=== PATIENT | female | born 1965 | race Caucasian/White ===

== ENCOUNTER 2019-05-21 06:57 | Inpatient (IN) | payer OTHER ==
[~2019-05-21 06:57] MED LIST: Acetaminophen 1,000 MG in Premix Bag 1 BAG IV SCH; Famotidine 20 MG/2 ML SDV IVPUSH SCH; Ropivacaine 49.25 ML, Ketorolac 30 MG, EPINEPHrine 0.5 MG, cloNIDine 80 MCG in Sodium C... INJECT SCH; Scopolamine 1.5 MG Transdermal Patch TRDERM SCH
[2019-05-21] MEDS: Lactated Ringers 1,000 ML IV SCH ×2 (07:22→16:02)
[2019-05-21] MEDS ORDERED: Lidocaine 2% 5 ML SDV ONE (07:25)
[2019-05-21] MEDS ORDERED: Glycopyrrolate 0.2 MG/ML SDV ONE (07:25)
[2019-05-21] MEDS ORDERED: Ketorolac 30 MG/ML SDV ONE (07:25)
[2019-05-21] MEDS ORDERED: fentaNYL 100 MCG/2 ML SDV ONE (07:25)
[2019-05-21] MEDS ORDERED: Ondansetron 4 MG/2 ML SDV ONE (07:25)
[2019-05-21] MEDS ORDERED: Midazolam 1 MG/ML 2 ML SDV ONE (07:25)
[2019-05-21] MEDS ORDERED: Propofol 200 MG/20 ML SDV ONE (07:27)
[2019-05-21] MEDS ORDERED: Sodium Chloride 0.9% 20 ML ONE (07:31)
[2019-05-21] MEDS ORDERED: ceFAZolin 1 GM Vial ONE (07:31)
[2019-05-21] MEDS ORDERED: Bupivacaine 0.5% 10 ML SDV ONE ×2 (07:35→08:09)
--- NOTE | 2019-05-21 07:46 | PCM.PREANE ---
Preanesthetic Assessment - Anesthesia/Transfusion/Family Hx Anesthesia History: Prior Anesthesia Without Reaction Family History of Anesthesia Reaction: No Transfusion History: No Prior Transfusion(s) - Review of Systems General: No Symptoms Pulmonary: No Symptoms Cardiovascular: No Symptoms Gastrointestinal: Other (sx of gerdd) Neurological: No Symptoms Other: Reports: None - Physical Assessment NPO Status Date: 05/20/19 O2 Sat by Pulse Oximetry: 97 Respiratory Rate: 16 Vital Signs: Last Vital Signs Temp Pulse 79 05/21/19 07:16 Resp 16 05/21/19 07:16 BP 154/86 H 05/21/19 07:16 Pulse Ox 97 05/21/19 07:16 Height: 5 ft 10 in Weight: 103.419 kg ASA Class: 2 Mental Status: Alert & Oriented x3 Airway Class: Mallampati = 2 Dentition: Reports: Normal Dentition ROM/Head Extension: Full Lungs: Clear to Auscultation, Normal Respiratory Effort Cardiovascular: Regular Rate, Regular Rhythm - Allergies Allergies/Adverse Reactions: Allergies Allergy/AdvReac Type Severity Reaction Status Date / Time No Known Allergies Allergy Verified 05/21/19 07:20 - Blood Blood Available: No - Anesthesia Plan Pre-Op Medication Ordered: None - Acknowledgements Anesthesia Type Planned: Spinal Pt an Appropriate Candidate for the Planned Anesthesia: Yes Alternatives and Risks of Anesthesia Discussed w Pt/Guardian: Yes Pt/Guardian Understands and Agrees with Anesthesia Plan: Yes Additional Comments: anes prob list: hx anemia- hb=14, hx DVT- on no chronic anticoags, chronic LBP- 0n gabipentin, GERD PLAN: spinal with sedation PreAnesthesia Questionnaire HEENT History: Reports: Sinusitis, Other (See Below) Other HEENT History: tongue sore Cardiovascular History: Reports: Blood Clots/VTE/DVT Other Cardiovascular History: fell after Achilles tendon repair and developed a DVT- took anticoagulants Respiratory History: Reports: None Gastrointestinal History: Reports: GERD Other Gastrointestinal History: nausea Genitourinary History: Reports: None [employer] PLAYER History: Reports: Musculoskeletal History: Reports: Arthritis, Back Pain, Chronic, Fibromyalgia, Neck Pain, Chronic Other Musculoskeletal History: calf pain, neck pain, 5th metatarsal fracture, neck stiffness, swelling, right knee pain Neurological History: Reports: Migraines, Other (See Below) Other Neuro History: degenerative disc disease in neck and back, has had Epidural Steroid injections for pain control Psychiatric History: Reports: Anxiety Endocrine/Metabolic History: Reports: Obesity/BMI 30+ Hematologic History: Reports: Anemia Other Hematologic History: was anemic before Hysterectomy- not since Immunologic History: Reports: None Oncologic (Cancer) History: Reports: None Dermatologic History: - Past Surgical History Head Surgeries/Procedures: Reports: None HEENT Surgical History: Reports: Adenoidectomy, Tonsillectomy Cardiovascular Surgical History: Reports: None Respiratory Surgical History: Reports: None GI Surgical History: Reports: Hernia, Abdominal Other GI Surgeries/Procedures: Umbilical hernia repair Female Surgical History: Reports: Hysterectomy, Salpingo-Oophorectomy, Other (See Below) Other Female Surgeries/Procedures: had been on anticoagulants when she had Hysterectomy- had bleeding 2 weeks post op that required surgery to control Male Surgical History: Reports: None Endocrine Surgical History: Reports: None Neurological Surgical History: Reports: None Musculoskeletal Surgical History: Reports: Carpal Tunnel, Other (See Below) Other Musculoskeletal Surgeries/Procedures:: hx of release of Plantar Fascitis, hx of Achilles Tendon repair Oncologic Surgical History: Reports: None Dermatological Surgical History: Reports: None - SUBSTANCE USE Smoking Status *Q: Never Smoker Recreational Drug Use History: No - HOME MEDS Home Medications: Home Meds Acetaminophen/Caffeine [Excedrin Tension Headache Cplt] 1 tab PO BID PRN [History] Gabapentin [Neurontin] 600 mg PO TID 05/18/19 [History] Naproxen Sodium [Aleve] 220 mg PO BID PRN 05/18/19 [History] - CURRENT (IN HOUSE) MEDS Current Meds: Current Medications Famotidine (Pepcid) 40 mg IVPUSH ONARRIVE [facility] Last Admin: 05/21/19 07:26 Dose: 40 mg Acetaminophen 1,000 mg/ Premix 100 mls @ 400 mls/hr IV ONARRIVE [facility] Last Admin: 05/21/19 07:29 Dose: 400 mls/hr Cefazolin Sodium/Dextrose 2 gm (/ Premix) 50 mls @ 100 mls/hr IV ONCALL [facility] Ropivacaine 49.25 ml/Ketorolac Tromethamine 30 mg/Epinephrine HCl 0.5 mg/ Clonidine HCl 80 mcg/ Sodium Chloride 75 mls @ 50 mls/sec INJECT ASDIRECTED [facility] Lactated Ringer's (Ringers, Lactated) 1,000 mls @ 100 mls/hr IV ASDIRECTED [facility] Last Admin: 05/21/19 07:22 Dose: 100 mls/hr Tranexamic Acid 2,000 mg/ (Sodium Chloride) 120 mls @ 600 mls/hr IV ASDIRECTED ONE Stop: 05/21/19 08:11 Scopolamine (Transderm-Scop) 1.5 mg TRDERM ONARRIVE [facility] Last Admin: 05/21/19 07:23 Dose: 1.5 mg Discontinued Medications Bupivacaine HCl (Sensorcaine-Mpf 0.5%) Confirm Administered Dose 10 ml .ROUTE .STK-MED ONE Stop: 05/21/19 07:36 Cefazolin Sodium (Ancef) Confirm Administered Dose 2 gm .ROUTE .STK-MED ONE Stop: 05/21/19 07:32 Fentanyl (Sublimaze) Confirm Administered Dose 100 mcg .ROUTE .STK-MED ONE Stop: 05/21/19 07:26 Glycopyrrolate (Robinul) Confirm Administered Dose 0.2 mg .ROUTE .STK-MED ONE Stop: 05/21/19 07:26 Sodium Chloride (Normal Saline) Confirm Administered Dose 20 mls @ as directed .ROUTE .STK-MED ONE Stop: 05/21/19 07:32 Ketorolac Tromethamine (Toradol) Confirm Administered Dose 30 mg .ROUTE .STK- MED ONE Stop: 05/21/19 07:26 Lidocaine (Xylocaine-Mpf 2%) Confirm Administered Dose 5 ml .ROUTE .STK-MED ONE Stop: 05/21/19 07:26 Midazolam HCl (Versed 1 Mg/Ml) Confirm Administered Dose 2 mg .ROUTE .STK-MED ONE Stop: 05/21/19 07:26 Ondansetron HCl (Zofran) Confirm Administered Dose 4 mg .ROUTE .STK-MED ONE Stop: 05/21/19 07:26 Propofol (Diprivan 20 Ml) Confirm Administered Dose 200 mg .ROUTE .STK-MED ONE Stop: 05/21/19 07:28
[2019-05-21] MEDS ORDERED: Tranexamic Acid 2,000 MG in Sodium Chloride 0.9% 100 ML IV ONE (08:00)
[2019-05-21] MEDS ORDERED: ceFAZolin 2 GM in Premix Bag 1 BAG IV SCH (08:00)
[2019-05-21] MEDS ORDERED: Bupivacaine 0.25% 10 ML SDV ONE (08:09)
[2019-05-21] MEDS ORDERED: methylPREDNISolone Acetate 80 MG/ML SDV ONE ×2 (08:45)
[2019-05-21] MEDS ORDERED: Phenylephrine/Normal Saline 100 MCG/ML 10 ML Syringe ONE (09:29)
[2019-05-21] MEDS ORDERED: Sodium Chloride 0.9% 2.5 ML Syringe FLUSH PRN (10:32)
[2019-05-21] MEDS ORDERED: Morphine PF 30 MG/30 ML PCA Vial IV PRN (10:32)
[2019-05-21] MEDS ORDERED: Docusate Sodium 100 MG Cap PO PRN (10:32)
[2019-05-21] MEDS ORDERED: Bisacodyl 10 MG Supp RECTAL PRN (10:32)
[2019-05-21] MEDS ORDERED: Sodium Chloride 0.9% 10 ML Syringe FLUSH PRN (10:32)
[2019-05-21] MEDS ORDERED: Ondansetron 4 MG/2 ML SDV IVPUSH PRN (10:32)
[2019-05-21] MEDS ORDERED: Aluminum Hydroxide/Magnesium Hydroxide/Simethicone Susp 30 ML Cup PO PRN (10:32)
--- NOTE | 2019-05-21 10:54 | PCM.OPNOTE ---
- General Post-Op/Procedure Note Date of Surgery/Procedure: 05/21/19 Operative Procedure(s): R TKA, injection left knee Post-Op Diagnosis: DJD right and left knee Anesthesia Technique: Moderate Sedation, Spinal Primary Surgeon: Valentina Gonzalez Sealer Sander: Nicci Hernandez Sealer Sander: Lacie Prince EBL in mLs: 50 Condition: Good Free Text/Narrative:: #[id number] tt=42 min Intake & Output 05/20/19 05/21/19 05/21/19 22:59 06:59 14:59 Output Total 100 Balance -100
--- NOTE | 2019-05-21 11:45 | PCM.POSTAN ---
POST ANESTHESIA ASSESSMENT - MENTAL STATUS Mental Status: Alert, Oriented - RESPIRATORY Respiratory Status: Respiratory Rate WNL, Airway Patent, O2 Saturation Stable - CARDIOVASCULAR CV Status: Pulse Rate WNL, Blood Pressure Stable - GASTROINTESTINAL GI Status: No Symptoms - POST OP HYDRATION Hydration Status: Adequate & Stable
[2019-05-21] MEDS ORDERED: Ketorolac 30 MG/ML SDV IVPUSH SCH (13:00)
[2019-05-21] MEDS: Acetaminophen 1,000 MG in Premix Bag 1 BAG IV SCH ×2 (14:42→20:31)
--- NOTE | 2019-05-21 15:25 | OR ---
SURGEON: Valentina Gonzalez MD DATE OF PROCEDURE: 05/21/2019 PREOPERATIVE DIAGNOSES: 1. Degenerative joint disease, right knee. 2. Degenerative joint disease, left knee. POSTOPERATIVE DIAGNOSES: 1. Degenerative joint disease, right knee. 2. Degenerative joint disease, left knee. PROCEDURES: 1. Right total knee arthroplasty using patient specific instrumentation. 2. Injection, left knee (large joint). PRIMARY SURGEON: Valentina Gonzalez MD. BLOW OFF WORKER: Nicci Hernandez PA-C, and DAVID Barba. ANESTHESIA: Spinal with sedation. ESTIMATED BLOOD LOSS: 50 mL. TOURNIQUET TIME: 42 minutes. COMPLICATIONS: None. DVT PROPHYLAXIS: PAS boot and GERARD hose to the nonoperative leg. IMPLANTS USED: Trace Persona femoral component size 8 standard (LPS), tibial component size F, 10 mm all-polyethylene articular surface, and 35 mm all-polyethylene patella. FINDINGS: Intraoperative findings of the right knee showed severe tricompartmental degenerative changes with osteophyte formation. Grade 4 chondromalacia was noted in all 3 compartments. No significant synovitis was found. Using sterile technique, the area along the lateral aspect of the left knee was prepped using ChloraPrep solution. A time-out was performed to ensure correct site and procedure. The site was not marked due to the bilateral nature of the procedure. A mixture of 3 mL 1% lidocaine, 3 mL 0.5% Marcaine, and 2 mL Depo- Medrol (80 mg/mL) was injected into the left knee using a superolateral retropatellar approach. A Band-Aid was placed at the completion of the procedure. BRIEF HISTORY: Paulette is a 54-year-old female, who has had complaint of progressive bilateral knee pain. She was found to have degenerative changes. She failed to respond to conservative treatment. Due to her lack of response to conservative treatment, I did recommend surgical intervention. The risks and goals of the procedure were discussed with the patient and were documented preoperatively. She agreed to proceed. DESCRIPTION OF PROCEDURE: The patient was properly identified and brought to the operating room. The patient was then transferred from the operating room cart and placed on the operating table in a supine position. Anesthesia was administered by the anesthesia staff. After adequate anesthesia was obtained, a well-padded tourniquet was applied to the surgical lower extremity. Nuñez catheter was placed. The lower extremity was then prepped in standard fashion using ChloraPrep solution. It was then sterilely draped. A time-out was performed to ensure correct site and procedure. Preoperative antibiotics were given along with one gram of tranexamic acid IV. The surgical site had been marked preoperatively. An Esmarch was used to exsanguinate the right lower extremity and the tourniquet was inflated. An incision was made over the anterior aspect of the knee. The subcutaneous tissues were dissected down to the level of the fascia. A medial parapatellar approach to the knee was made. A portion of the infrapatellar fat pad was then excised. The distal femur was then exposed. The femoral patient-specific cutting guide was then placed. Pins were also placed. The distal femoral cutting block was placed and the distal femoral cut was made. Instrumentation was then removed. Both Whitesides' line and the epicondylar axis were then marked with electrocautery. The 4-in-1 cutting block was placed. This was placed in a slightly externally rotated position, which corresponded well with the previously drawn lines. The cutting guide was then pinned into position. An Kenney wing guide was used to check the depth of resection of our anterior condylar cut and it was felt that no notching would occur. The anterior condylar cut was then made followed by the posterior condylar cut. Both the posterior chamfer and anterior chamfer cuts were then made. The cutting block was then removed along with the excess bony remnants. We then turned our attention to the tibia. The anterior cruciate ligament and posterior cruciate ligament were released and a posterior cruciate ligament retractor was placed to allow the tibia to be pulled anteriorly. The tibial patient-specific guide was then placed on the proximal tibia. This fit anatomically. The pins were then placed. The proximal tibia cutting guide was then placed and screwed into position. The proximal tibial resection was then made with care being taken to protect the patellar tendon. The bony resection was then removed. The remainder of the medial and lateral meniscus were then excised. Care was taken to protect the popliteus tendon. The tibia was then sized to the appropriate size. The distal femur was then elevated. The posterior capsule was stripped off the distal femur both medially and laterally. The posterior capsule along with the medial and lateral gutters were then injected with a standard mixture consisting of clonidine, epinephrine, Toradol, and Ropivacaine, unless any allergies were found preoperatively. The femoral component was then placed onto the distal femur in a slightly lateral position. This fit the femur well. A box cut was then made without difficulty. This was then removed. The tibial trial along with the polyethylene liner was then placed. The knee came easily into full extension and was stable to varus and valgus stressing both in full extension and flexion. Any additional releases were performed at this time. We then returned our attention to the patella. The patella was everted and towel clamps were used to hold the patella in position. It was resected to a 15 millimeter thickness. It was then sized to the appropriate size. It was prepared in the usual fashion after placing the predetermined size clamps. This was placed in a slightly superior and medial position. The clamp was then removed. The patellar trial button was placed. The knee was taken through a range of motion using the no-touch technique. The patella tracked centrally. A drop ranjana was then placed to check alignment. All instruments were then removed from the knee. The tibial sizer was then placed on the tibia. The tibia was prepared in the usual fashion using the reamer and broach. This was then removed. All bony surfaces were copiously irrigated with Pulsavac solution. They were then suctioned dry. Cement was prepared on the back table in the usual manner. Once it was prepared, the bone ends were again suctioned dry. The tibia was cemented into place first. This was malleted into position. Excess cement was then cleared. The femur was then placed in a similar manner. We placed the polyethylene trial into place and the knee was brought into full extension. An axial load was placed while keeping the knee in full extension. The patella button was also cemented into position and the clamp was used to hold this in place as the cement was allowed to cure. The wound was again copiously irrigated with saline solution using a Pulsavac mixing roll operator. Following this 1 g of tranexamic acid was applied to the wound topically. After we had adequate curing of the cement, the knee was again taken through a range of motion. The size of the polyethylene was then determined. The polyethylene trial was then removed. The tibial tray was suctioned to make sure there was no remaining soft tissue or cement. Excess cement was cleared from around the edges of the prosthesis as well. The tourniquet was then deflated. We were able to observe for any excess bleeding and none was noted. Electrocautery was used to maintain hemostasis. An additional gram of tranexamic acid was given IV. The retractors were again placed and the predetermined polyethylene was then placed. This was locked into position without difficulty. The knee was again taken through a range of motion with no change from the prior exam. The fascial layer was closed with Number One Vicryl. The subcutaneous tissues were closed with 2-0 Vicryl. The skin was closed with joseph. Xeroform gauze was placed over the wound and a bulky dressing was applied. The patient was then awakened from anesthesia and transferred back to the operating room cart. They were brought to the recovery room in stable condition. All needle and sponge counts were correct. LEÓN / CELINA /[id number]
[2019-05-21] MEDS: oxyCODONE 5 MG Tab PO PRN ×2 (16:03→21:32)
--- NOTE | 2019-05-21 16:14 | CR ---
EXAMINATION: Right knee HISTORY: TKA COMPARISON: 02/08/2019 TECHNIQUE: 2 views FINDINGS/IMPRESSION: Right total knee hardware is demonstrated in good position and alignment. Postoperative soft tissue changes are noted.
[2019-05-21] MEDS: ceFAZolin 2 GM in Premix Bag 1 BAG IV SCH (17:43)
[2019-05-21] MEDS: Ketorolac 30 MG/ML SDV IVPUSH SCH ×2 (17:56→23:58)
[2019-05-21] MEDS: diphenhydrAMINE 25 MG Cap PO PRN (21:38)
[2019-05-22] MEDS: ceFAZolin 2 GM in Premix Bag 1 BAG IV SCH (00:02)
[2019-05-22] MEDS: Acetaminophen 1,000 MG in Premix Bag 1 BAG IV SCH (03:33)
[2019-05-22] MEDS: oxyCODONE 5 MG Tab PO PRN (03:42)
[2019-05-22] MEDS: diphenhydrAMINE 25 MG Cap PO PRN ×2 (03:43→12:41)
[2019-05-22] MEDS: Ketorolac 30 MG/ML SDV IVPUSH SCH (05:36)
[2019-05-22 07:58] VITALS: BP 116/82
[2019-05-22] MEDS: Acetaminophen/oxyCODONE 325-5 MG Tab PO PRN ×3 (08:44→14:57)
[2019-05-22] MEDS ORDERED: Famotidine 20 MG Tab PO SCH (09:00)
[2019-05-22] MEDS ORDERED: Celecoxib 100 MG Cap PO SCH (09:00)
[2019-05-22] MEDS ORDERED: Apixaban 2.5 MG Tab PO SCH (09:00)
[2019-05-22] MEDS ORDERED: Polyethylene Glycol 3350 Powder 17 GM Packet PO SCH (09:00)
--- NOTE | 2019-05-22 12:10 | PCM.SURGPN ---
- General Info Date of Service: 05/22/19 (0740) Date of Surgery/Procedure: 05/21/19 POD#: 1 Post-Op Diagnosis: Degenerative Joint Disease, RIGHT knee Functional Status: Reports: Pain Controlled, Tolerating Diet, Ambulating - Review of Systems General: Reports: No Symptoms. Denies: Fever HEENT: Reports: No Symptoms Pulmonary: Reports: No Symptoms. Denies: Shortness of Breath Cardiovascular: Reports: No Symptoms Gastrointestinal: Reports: No Symptoms. Denies: Nausea, Vomiting Genitourinary: Reports: Other (Nuñez catheter removed this morning. Has not voided yet) Musculoskeletal: Reports: Joint Pain (right knee) Skin: Reports: Pruritis (c/o itching, suspected to be secondary to [employer] morphine) . Denies: Rash Neurological: Reports: No Symptoms Psychiatric: Reports: No Symptoms - Patient Data Vitals - Most Recent: Last Vital Signs Temp 36.3 C 05/22/19 07:57 Pulse 58 L 05/22/19 07:57 Resp 16 05/22/19 07:57 BP 116/82 05/22/19 07:57 Pulse Ox 94 L 05/22/19 07:57 Weight - Most Recent: 103.419 kg I&O - Last 24 Hours: Intake & Output 05/21/19 05/22/19 05/22/19 22:59 06:59 14:59 Intake Total 1051 1610 Output Total 1750 2210 Balance -699 -600 Lab Results Last 24 Hrs: Laboratory Results - last 24 hr 05/22/19 Range/Units 04:35 Hgb 13.2 (12.0-16.0) g/dL Hct 39.5 (36.0-46.0) % Med Orders - Current: Current Medications Al Hydroxide/Mg Hydroxide (Mag-Al Plus) 30 ml PO Q4H PRN PRN Reason: Indigestion Apixaban (Eliquis) 2.5 mg PO BID [facility] Last Admin: 05/22/19 08:37 Dose: 2.5 mg Bisacodyl (Dulcolax) 10 mg RECTAL DAILY PRN PRN Reason: Constipation Celecoxib (Celebrex) 200 mg PO BID [facility] Last Admin: 05/22/19 08:36 Dose: 200 mg Diphenhydramine HCl (Benadryl) 25 - 50 mg PO Q6H PRN PRN Reason: Itching Last Admin: 05/22/19 03:43 Dose: 25 mg Docusate Sodium (Colace) 100 mg PO BID PRN PRN Reason: Constipation Famotidine (Pepcid) 40 mg IVPUSH ONARRIVE [facility] Last Admin: 05/21/19 07:26 Dose: 40 mg Famotidine (Pepcid) 40 mg PO DAILY [facility] Last Admin: 05/22/19 08:36 Dose: 40 mg Acetaminophen 1,000 mg/ Premix 100 mls @ 400 mls/hr IV ONARRIVE [facility] Last Admin: 05/21/19 07:29 Dose: 400 mls/hr Cefazolin Sodium/Dextrose 2 gm (/ Premix) 50 mls @ 100 mls/hr IV ONCALL [facility] Ropivacaine 49.25 ml/Ketorolac Tromethamine 30 mg/Epinephrine HCl 0.5 mg/ Clonidine HCl 80 mcg/ Sodium Chloride 75 mls @ 50 mls/sec INJECT ASDIRECTED [facility] Lactated Ringer's (Ringers, Lactated) 1,000 mls @ 100 mls/hr IV ASDIRECTED [facility] Last Admin: 05/21/19 16:02 Dose: 100 mls/hr Morphine Sulfate (Morphine) 1 - 3 mg IVPUSH Q3H PRN PRN Reason: Pain Ondansetron HCl (Zofran) 4 mg IVPUSH Q6H PRN PRN Reason: Nausea/Vomiting Oxycodone/Acetaminophen (Percocet 325-5 Mg) 1 - 2 tab PO Q4H PRN PRN Reason: Pain Last Admin: 05/22/19 08:44 Dose: 2 tab Polyethylene Glycol (Miralax) 17 gm PO DAILY [facility] Last Admin: 05/22/19 08:37 Dose: 17 gm Scopolamine (Transderm-Scop) 1.5 mg TRDERM ONARRIVE [facility] Last Admin: 05/21/19 07:23 Dose: 1.5 mg Sodium Chloride (Saline Flush) 10 ml FLUSH ASDIRECTED PRN PRN Reason: Keep Vein Open Sodium Chloride (Saline Flush) 2.5 ml FLUSH ASDIRECTED PRN PRN Reason: Keep Vein Open Discontinued Medications Bupivacaine HCl (Sensorcaine-Mpf 0.5%) Confirm Administered Dose 10 ml .ROUTE .[facility]-MED ONE Stop: 05/21/19 07:36 Bupivacaine HCl (Sensorcaine-Mpf 0.25%) Confirm Administered Dose 10 ml .ROUTE .STK-MED ONE Stop: 05/21/19 08:10 Bupivacaine HCl (Sensorcaine-Mpf 0.5%) Confirm Administered Dose 10 ml .ROUTE .STK-MED ONE Stop: 05/21/19 08:10 Cefazolin Sodium (Ancef) Confirm Administered Dose 2 gm .ROUTE .STK-MED ONE Stop: 05/21/19 07:32 Fentanyl (Sublimaze) Confirm Administered Dose 100 mcg .ROUTE .STK-MED ONE Stop: 05/21/19 07:26 Glycopyrrolate (Robinul) Confirm Administered Dose 0.2 mg .ROUTE .STK-MED ONE Stop: 05/21/19 07:26 Tranexamic Acid 2,000 mg/ (Sodium Chloride) 120 mls @ 600 mls/hr IV ASDIRECTED ONE Stop: 05/21/19 08:11 Last Admin: 05/21/19 12:42 Dose: Not Given Sodium Chloride (Normal Saline) Confirm Administered Dose 20 mls @ as directed .ROUTE .STK-MED ONE Stop: 05/21/19 07:32 Acetaminophen 1,000 mg/ Premix 100 mls @ 400 mls/hr IV Q6H [facility] Stop: 05/22/19 03:14 Last Admin: 05/22/19 03:33 Dose: 400 mls/hr Cefazolin Sodium/Dextrose 2 gm (/ Premix) 50 mls @ 100 mls/hr IV Q8H [facility] Stop: 05/22/19 01:29 Last Admin: 05/22/19 00:02 Dose: 100 mls/hr Ketorolac Tromethamine (Toradol) Confirm Administered Dose 30 mg .ROUTE .STK- MED ONE Stop: 05/21/19 07:26 Ketorolac Tromethamine (Toradol) 30 mg IVPUSH Q6H [facility] Stop: 05/22/19 05:00 Last Admin: 05/22/19 05:36 Dose: 30 mg Ketorolac Tromethamine (Toradol) 30 mg IVPUSH Q6H [facility] Lidocaine (Xylocaine-Mpf 2%) Confirm Administered Dose 5 ml .ROUTE .STK-MED ONE Stop: 05/21/19 07:26 Methylprednisolone Acetate (Depo-Medrol) 80 mg .XX .STK-MED ONE Stop: 05/21/19 08:46 Methylprednisolone Acetate (Depo-Medrol) 80 mg .XX .STK-MED ONE Stop: 05/21/19 08:46 Midazolam HCl (Versed 1 Mg/Ml) Confirm Administered Dose 2 mg .ROUTE .STK-MED ONE Stop: 05/21/19 07:26 Morphine Sulfate (Morphine [employer] 30 Mg In 30 Ml) 30 mg IV ASDIRECTED PRN; Protocol PRN Reason: Pain Stop: 05/22/19 06:00 Last Admin: 05/21/19 11:25 Dose: 30 mg Ondansetron HCl (Zofran) Confirm Administered Dose 4 mg .ROUTE .STK-MED ONE Stop: 05/21/19 07:26 Oxycodone HCl (Oxycodone) 5 - 10 mg PO Q4H PRN PRN Reason: Pain Stop: 05/22/19 08:00 Last Admin: 05/22/19 03:42 Dose: 5 mg Phenylephrine HCl (Phenylephrine In Ns 100 Mcg/Ml) Confirm Administered Dose 1 mg .ROUTE .STK-MED ONE Stop: 05/21/19 09:30 Propofol (Diprivan 20 Ml) Confirm Administered Dose 200 mg .ROUTE .STK-MED ONE Stop: 05/21/19 07:28 Tranexamic Acid (Cyklokapron) Confirm Administered Dose 2,000 mg .ROUTE .STK- MED ONE Stop: 05/21/19 08:09 - Exam Wound/Incisions: Dressing Dry and Intact Quality Assessment: Urine Catheter (removed this morning), DVT Prophylaxis ( compression stockings, SCDs, and will start Eliquis today) General: Alert, Oriented, Cooperative, No Acute Distress HEENT: Pupils Equal, Mucous Membr. Moist/Harvey Lungs: Normal Respiratory Effort Cardiovascular: Regular Rate GI/Abdominal Exam: Soft Extremities: Other (AT/EHL/gastroc 5/5. Sensation grossly intact to LE. PP2+) . No: Pedal Edema Skin: Warm, Dry, Intact Neurological: No New Focal Deficit, Normal Speech Psy/Mental Status: Alert, Normal Affect, Normal Mood - Problem List Review Problem List Initiated/Reviewed/Updated: Yes - My Orders Last 24 Hours: Active Orders 24 hr Category Date Time Status HEMOGLOBIN/HEMATOCRIT,HH [HEME] DAILY Lab 05/23/19 06:00 Ordered Acetaminophen/oxyCODONE [Percocet 325-5 MG] Med 05/22/19 06:00 Active 1 - 2 tab PO Q4H PRN Apixaban [Eliquis] Med 05/22/19 09:00 Active 2.5 mg PO BID Celecoxib [CeleBREX] Med 05/22/19 09:00 Active 200 mg PO BID Famotidine [Pepcid] Med 05/22/19 09:00 Active 40 mg PO DAILY Morphine Med 05/22/19 13:09 Active 1 - 3 mg IVPUSH Q3H PRN Polyethylene Glycol 3350 [MiraLAX] Med 05/22/19 09:00 Active 17 gm PO DAILY Convert IV to Saline Lock [OM.PC] PRN Oth 05/22/19 10:45 Ordered Medication Orders Al Hydroxide/Mg Hydroxide (Mag-Al Plus) 30 ml PO Q4H PRN PRN Reason: Indigestion Apixaban (Eliquis) 2.5 mg PO BID [facility] Last Admin: 05/22/19 08:37 Dose: 2.5 mg Bisacodyl (Dulcolax) 10 mg RECTAL DAILY PRN PRN Reason: Constipation Celecoxib (Celebrex) 200 mg PO BID [facility] Last Admin: 05/22/19 08:36 Dose: 200 mg Diphenhydramine HCl (Benadryl) 25 - 50 mg PO Q6H PRN PRN Reason: Itching Last Admin: 05/22/19 03:43 Dose: 25 mg Admin: 05/21/19 21:38 Dose: 25 mg Docusate Sodium (Colace) 100 mg PO BID PRN PRN Reason: Constipation Famotidine (Pepcid) 40 mg IVPUSH ONARRIVE [facility] Last Admin: 05/21/19 07:26 Dose: 40 mg Famotidine (Pepcid) 40 mg PO DAILY [facility] Last Admin: 05/22/19 08:36 Dose: 40 mg Acetaminophen 1,000 mg/ Premix 100 mls @ 400 mls/hr IV ONARRIVE [facility] Last Admin: 05/21/19 07:29 Dose: 400 mls/hr Cefazolin Sodium/Dextrose 2 gm (/ Premix) 50 mls @ 100 mls/hr IV ONCALL [facility] Ropivacaine 49.25 ml/Ketorolac Tromethamine 30 mg/Epinephrine HCl 0.5 mg/ Clonidine HCl 80 mcg/ Sodium Chloride 75 mls @ 50 mls/sec INJECT ASDIRECTED [facility] Lactated Ringer's (Ringers, Lactated) 1,000 mls @ 100 mls/hr IV ASDIRECTED [facility] Last Admin: 05/21/19 16:02 Dose: 100 mls/hr Infusion: 05/21/19 16:02 Dose: 100 mls/hr Admin: 05/21/19 07:22 Dose: 100 mls/hr Morphine Sulfate (Morphine) 1 - 3 mg IVPUSH Q3H PRN PRN Reason: Pain Ondansetron HCl (Zofran) 4 mg IVPUSH Q6H PRN PRN Reason: Nausea/Vomiting Oxycodone/Acetaminophen (Percocet 325-5 Mg) 1 - 2 tab PO Q4H PRN PRN Reason: Pain Last Admin: 05/22/19 08:44 Dose: 2 tab Polyethylene Glycol (Miralax) 17 gm PO DAILY [facility] Last Admin: 05/22/19 08:37 Dose: 17 gm Scopolamine (Transderm-Scop) 1.5 mg TRDERM ONARRIVE [facility] Last Admin: 05/21/19 07:23 Dose: 1.5 mg Sodium Chloride (Saline Flush) 10 ml FLUSH ASDIRECTED PRN PRN Reason: Keep Vein Open Sodium Chloride (Saline Flush) 2.5 ml FLUSH ASDIRECTED PRN PRN Reason: Keep Vein Open - Assessment Assessment (Free Text/Narrative):: s/p RIGHT TKA - Plan Plan (Free Text/Narrative):: Overall, she is doing well. VSS/afebrile. Hg stable at 13.2 Tolerating po food/fluids without N/V. Nuñez catheter removed this morning d/t adequate urine output. Did not have formal PT yesterday as had lingering numbness to RLE. She was up to chair for supper last evening and is sitting in chair this morning for breakfast. She did ambulate in her room last evening with nursing staff. Ancef 2gm IV completed for total of 24 hours of IV coverage. Will start Eliquis today for DVT prophylaxis. Compression stockings and SCDs on additionally for DVT prophylaxis. Pain is controlled with oxycodone. She quit using [employer] morphine as c/o generalized itching, treated with po Benadryl. Feels she will be ready for discharge home today. She will receive PT this morning and again in the afternoon to ensure that she is comfortable with steps. The only thing she additionally requested was a handicap parking permit application. I will bring this to her this afternoon. At that time, will remove surgical dressing and apply AquaCell bandage.
[2019-05-22] MEDS ORDERED: Morphine 4 MG/ML Syringe IVPUSH PRN (13:09)
== END 2019-05-22 15:20 | disposition home or self-care (01) | DRG 470 ==
LOC: UNDOADMIN 06:57 → MW.MS 06:57 → OBSVTOIN 06:58 → EDSTATUS 10:00
PROVIDERS: ADMIT Orthopaedic Surgery; ATTEND Orthopaedic Surgery
PROC: 0SRC0J9 Replacement of Right Knee Joint with Synthetic Substitute, Cemented, Open Approach (ICD-10-PCS; principal; 2019-05-21)
PROC: 3E0U33Z Introduction of Anti-inflammatory into Joints, Percutaneous Approach (ICD-10-PCS; 2019-05-21)
PROC: 3E0U3BZ Introduction of Anesthetic Agent into Joints, Percutaneous Approach (ICD-10-PCS; 2019-05-21)
DX: M17.0 Bilateral primary osteoarthritis of knee (principal); G89.29 Other chronic pain; G43.909 Migraine, unspecified, not intractable, without status migrainosus; M54.5 Low back pain; K21.9 Gastro-esophageal reflux disease without esophagitis; F41.9 Anxiety disorder, unspecified; M79.7 Fibromyalgia; E66.9 Obesity, unspecified; Z90.89 Acquired absence of other organs; Z86.718 Personal history of other venous thrombosis and embolism; Z79.01 Long term (current) use of anticoagulants; Z79.899 Other long term (current) drug therapy
CPT/HCPCS: 01402; 36415; 73560-26-RT; 73560-RT; 85014; 85018; 86850; 86900; 86901; 97110-GP; 97161-GP; 97530-GP; A4217; A9270-GY; C1713; C1776; J0131; J0171; J0690; J0735; J1040; J1885; J2001; J2250; J2274; J2370; J2405; J2704; J2795; J3010; J3490; J7050; J7120

== ENCOUNTER 2020-07-20 10:16 | Emergency (ER) | payer OTHER ==
--- NOTE | 2020-07-20 10:21 | EDM.PDOC ---
ED HPI GENERAL MEDICAL PROBLEM - General Chief Complaint: General Stated Complaint: LOWER BACK AND EYE INFECTION Time Seen by Provider: 07/20/20 10:18 Source of Information: Reports: Patient History Limitations: Reports: No Limitations - History of Present Illness INITIAL COMMENTS - FREE TEXT/NARRATIVE: HISTORY AND PHYSICAL: History of present illness: Patient is a 55-year-old female who presents to the ED today with concern of low back pain over the past 2 days and right eye discomfort over the past 5 days. Patient states she initially started with the right eye discomfort and thought that she had a stye. Patient states that she continues to have the stye sensation in her right eye and states she has been using [id number] eyedrops without relief of symptoms of her eye. Patient states starting last night she began having low back pain and rates it a 10 out of 10. Patient states the low back pain is worse with laying down and trying to stand up straight and better with sitting. Patient denies any loss or retention of bowel bladder function or saddle anesthesia. Patient denies any back injury or trauma. Patient denies any other symptoms or concerns. Patient denies fever, chills, chest pain, shortness of breath, or cough. Denies headache, neck stiff ness, change in vision, syncope, or near syncope. Denies nausea, vomiting, abdominal pain, diarrhea, constipation, or dysuria. Has not noted any blood in urine or stool. Patient has been eating and drinking appropriately. Review of systems: As per history of present illness and below otherwise all systems reviewed and negative. Past medical history: As per history of present illness and as reviewed below otherwise noncontributory. Surgical history: As per history of present illness and as reviewed below otherwise noncontributory. Social history: See social history for further information Family history: As per history of present illness and as reviewed below otherwise noncontribut ory. Physical exam: General: Patient is alert, oriented, and in no acute distress. Patient sitting comfortably on exam table. HEENT: Visual acuity intact. EOMs intact without pain or difficulty. Patient does have a chalazion of her right medial inferior eyelid that non painful to palpation. Mild crusting of the lower eye lashes and sclera mildly injected. Otherwise, atraumatic, normocephalic, pupils equal and reactive bilaterally, negative for conjunctival pallor or scleral icterus, mucous membranes moist, TMs normal bilaterally, throat clear, neck supple, nontender, trachea midline. No drooling or trismus noted. No meningeal signs. No hot potato voice noted. Lungs: Clear to auscultation, breath sounds equal bilaterally, chest nontender. Heart: S1S2, regular rate and rhythm without overt murmur Abdomen: Soft, nondistended, nontender. Negative for masses or hepatosplenomegaly. Negative for costovertebral tenderness. Pelvis: Stable nontender. Genitourinary: Deferred. Rectal: Deferred. Skin: Intact, warm, dry. No lesions or rashes noted. Extremities: No obvious deformity of the complete spine. No step-offs, or crepitus to palpation of the complete spine. Patient does have moderate tenderness of the lumbar spinous process and surrounding paraspinous muscles of the lumbar spine. Patient did ambulate into the emergency room today. Heel/toe gait intact but patient is hesitant to stand up straight. Patellar reflexes intact bilaterally. Otherwise, atraumatic, negative for cords or calf pain. Neurovascular unremarkable. Neuro: Awake, alert, oriented. Cranial nerves II through XII unremarkable. Cerebellum unremarkable. Motor and sensory unremarkable throughout. Exam nonfocal. Notes: Discussed importance for follow-up with the emergency room clerk and her primary care provider. Voices understanding and is agreeable to plan of care. Denies any further questions or concerns at this time. Diagnostics: Lumbar x-ray, thoracic spine x-ray, CBC, CMP, UA, Hcg Therapeutics: [place], Toradol, Zofran Prescription: Erythromycin ophthalmic, Flexeril, Diclofenac Impression: Chalazion, right with conjunctivitis Low back pain Plan: 1. Use a warm compress such as a wet facecloth, as warm as can be tolerated. Apply compress to the affected eyelid for 15 minutes, 2-4 times a day. In order to keep your eyelashes free from debris, you can use baby shampoo to remove skin particles from your eyelashes. 2. To massage the eye lid, after a bath or shower, warm up your hands with hot water. Use 1 drop of baby shampoo and close both eyes and cover the lashes with your index finger. Vigorously massaged the lid [id number] 10 times, do this 4 separate times, then rinse off any remaining shampoo. 3. Follow up with the emergency room clerk and primary care provider as discussed. Return to the ED as needed and as discussed. 4. The medication you received today does cause drowsiness, so do not drive for the remaining day. 5. Limit your mobility to prevent muscle stiffness. Get up to ambulate/move around/gentle stretching multiple times throughout the day. May alternate heat and ice to painful areas. 6. Tylenol as needed for back pain. Otherwise, take the prescribed Flexeril and diclofenac as directed. Diclofenac as an anti-inflammatory medication so do not take any additional NSAIDs with this medication, such as naproxen, ibuprofen, or Aleve. Flexeril, this medication may cause drowsiness, so do not take it while driving or needing to be functioning outside of the home. Definitive disposition and diagnosis as appropriate pending reevaluation and review of above. back Pain Score (Numeric/FACES): 10 - Related Data Allergies Allergy/AdvReac Type Severity Reaction Status Date / Time No Known Allergies Allergy Verified 05/21/19 15:17 Home Meds: Home Meds Acetaminophen/Caffeine [Excedrin Tension Headache Cplt] 1 tab PO BID PRN 05/18/19 [History] Cyclobenzaprine [Flexeril] 10 mg PO TID PRN #9 tab 07/20/20 [Rx] Diclofenac Sodium [Voltaren] 75 mg PO BIDMEALS PRN #15 tab.cr 07/20/20 [Rx] Erythromycin Base [Erythromycin 0.5% Ophth Oint] 1 applic OP Q4H 5 Days #1 tube 07/20/20 [Rx] Past Medical History HEENT History: Reports: Sinusitis, Other (See Below) Other HEENT History: tongue sore Cardiovascular History: Reports: Blood Clots/VTE/DVT Other Cardiovascular History: DVT Left lower leg 2011 Respiratory History: Reports: None Gastrointestinal History: Reports: GERD, Other (See Below) Other Gastrointestinal History: nausea Genitourinary History: Reports: None CLINICAL SCIENCE CONSULTANT History: Reports: Musculoskeletal History: Reports: Back Pain, Chronic, Fibromyalgia, Other (See B elow) Other Musculoskeletal History: calf pain, neck pain, 5th metatarsal fracture, neck stiffness, swelling, right knee pain Neurological History: Reports: Headaches, Chronic, Migraines Other Neuro History: degenerative disc disease in neck and back, has had Epidural Steroid injections for pain control Psychiatric History: Reports: Anxiety, Depression Endocrine/Metabolic History: Reports: None Hematologic History: Reports: Other (See Below) Other Hematologic History: blood clotting disorder Immunologic History: Reports: None Oncologic (Cancer) History: Reports: None Dermatologic History: Reports: None - Past Surgical History HEENT Surgical History: Reports: Naso-Sinus Surgery, Tonsillectomy GI Surgical History: Reports: Colonoscopy, Hernia Repair/Other Female Surgical History: Reports: Hysterectomy, Oophorectomy Musculoskeletal Surgical History: Reports: Arthroscopic Knee, Carpal Tunnel Other Musculoskeletal Surgeries/Procedures:: L ankle surgery Social & Family History - Caffeine Use Caffeine Use: Reports: Soda, Tea - Living Situation & Occupation Living situation: Reports: Single, Alone Occupation: Employed ED ROS GENERAL - Review of Systems Review Of Systems: Comprehensive ROS is negative, except as noted in HPI. ED EXAM, GENERAL - Physical Exam Exam: See Below (see dictation) Course - Vital Signs Last Recorded V/S: Last Vital Signs Temp 96.8 F L 07/20/20 10:38 Pulse 71 07/20/20 10:38 Resp 13 07/20/20 10:38 BP 160/100 H 07/20/20 10:38 Pulse Ox 96 07/20/20 10:38 - Orders/Labs/Meds Orders: Active Orders 24 hr Category Date Time Status EKG Documentation Completion [RC] STAT Care 07/20/20 10:58 Active CULTURE URINE [RM] Stat Lab 07/20/20 13:12 Ordered Labs: Laboratory Tests 07/20/20 07/20/20 07/20/20 Range/Units 11:05 11:05 11:05 WBC 6.88 (4.0-11.0) K/uL RBC 5.03 (4.30-5.90) M/uL Hgb 15.4 (12.0-16.0) g/dL Hct 46.0 (36.0-46.0) % MCV 91.5 (80.0-98.0) fL MCH 30.6 (27.0-32.0) pg MCHC 33.5 (31.0-37.0) g/dL RDW Std Deviation 43.1 (28.0-62.0) fl RDW Coeff of Dane 13 (11.0-15.0) % Plt Count 319 (150-400) K/uL MPV 10.40 (7.40-12.00) fL Neut % (Auto) 54.8 (48.0-80.0) % Lymph % (Auto) 33.0 (16.0-40.0) % Lamb % (Auto) 8.4 (0.0-15.0) % Eos % (Auto) 3.2 (0.0-7.0) % Baso % (Auto) 0.6 (0.0-1.5) % Neut # (Auto) 3.8 (1.4-5.7) K/uL Lymph # (Auto) 2.3 (0.6-2.4) K/uL Lamb # (Auto) 0.6 (0.0-0.8) K/uL Eos # (Auto) 0.2 (0.0-0.7) K/uL Baso # (Auto) 0.0 (0.0-0.1) K/uL Nucleated RBC % 0.0 /100WBC Nucleated RBCs # 0 K/uL Sodium 140 (136-145) mmol/L Potassium 4.3 (3.5-5.1) mmol/L Chloride 106 (98-107) mmol/L Carbon Dioxide 25.8 (21.0-32.0) mmol/L BUN 13 (7.0-18.0) mg/dL Creatinine 0.9 (0.6-1.0) mg/dL Est Cr Clr Drug Dosing 78.17 mL/min Estimated GFR (MDRD) > 60.0 ml/min Glucose 104 (74-106) mg/dL Calcium 8.6 (8.5-10.1) mg/dL Total Bilirubin 0.3 (0.2-1.0) mg/dL AST 30 (15-37) IU/L ALT 62 (14-63) IU/L Alkaline Phosphatase 138 H (46-116) U/L Total Protein 7.4 (6.4-8.2) g/dL Albumin 3.8 (3.4-5.0) g/dL Globulin 3.6 (2.6-4.0) g/dL Albumin/Globulin Ratio 1.1 (0.9-1.6) Lipase 112 (73-393) U/L HCG, Qual Cancelled HCG, Quant mIU/mL Urine Color Urine Appearance Urine pH (5.0-8.0) Ur Specific [place] (1.001-1.035) Urine Protein (NEGATIVE) mg/dL Urine Glucose (UA) (NEGATIVE) mg/dL Urine Ketones (NEGATIVE) mg/dL Urine Occult Blood (NEGATIVE) Urine Nitrite (NEGATIVE) Urine Bilirubin (NEGATIVE) Urine Urobilinogen (<2.0) EU/dL Ur Leukocyte Esterase (NEGATIVE) Urine RBC (0-2/HPF) Urine WBC (0-5/HPF) Ur Squamous Epith Cells Urine Bacteria (NEGATIVE) 07/20/20 07/20/20 Range/Units 11:47 12:25 WBC (4.0-11.0) K/uL RBC (4.30-5.90) M/uL Hgb (12.0-16.0) g/dL Hct (36.0-46.0) % MCV (80.0-98.0) fL MCH (27.0-32.0) pg MCHC (31.0-37.0) g/dL RDW Std Deviation (28.0-62.0) fl RDW Coeff of Dane (11.0-15.0) % Plt Count (150-400) K/uL MPV (7.40-12.00) fL Neut % (Auto) (48.0-80.0) % Lymph % (Auto) (16.0-40.0) % Lamb % (Auto) (0.0-15.0) % Eos % (Auto) (0.0-7.0) % Baso % (Auto) (0.0-1.5) % Neut # (Auto) (1.4-5.7) K/uL Lymph # (Auto) (0.6-2.4) K/uL Lamb # (Auto) (0.0-0.8) K/uL Eos # (Auto) (0.0-0.7) K/uL Baso # (Auto) (0.0-0.1) K/uL Nucleated RBC % /100WBC Nucleated RBCs # K/uL Sodium (136-145) mmol/L Potassium (3.5-5.1) mmol/L Chloride (98-107) mmol/L Carbon Dioxide (21.0-32.0) mmol/L BUN (7.0-18.0) mg/dL Creatinine (0.6-1.0) mg/dL Est Cr Clr Drug Dosing mL/min Estimated GFR (MDRD) ml/min Glucose (74-106) mg/dL Calcium (8.5-10.1) mg/dL Total Bilirubin (0.2-1.0) mg/dL AST (15-37) IU/L ALT (14-63) IU/L Alkaline Phosphatase (46-116) U/L Total Protein (6.4-8.2) g/dL Albumin (3.4-5.0) g/dL Globulin (2.6-4.0) g/dL Albumin/Globulin Ratio (0.9-1.6) Lipase (73-393) U/L HCG, Qual HCG, Quant 4.0 mIU/mL Urine Color YELLOW Urine Appearance SLT CLOUDY Urine pH 5.5 (5.0-8.0) Ur Specific [place] >= 1.030 (1.001-1.035) Urine Protein NEGATIVE (NEGATIVE) mg/dL Urine Glucose (UA) NEGATIVE (NEGATIVE) mg/dL Urine Ketones NEGATIVE (NEGATIVE) mg/dL Urine Occult Blood TRACE-INTACT H (NEGATIVE) Urine Nitrite NEGATIVE (NEGATIVE) Urine Bilirubin NEGATIVE (NEGATIVE) Urine Urobilinogen 0.2 (<2.0) EU/dL Ur Leukocyte Esterase NEGATIVE (NEGATIVE) Urine RBC 0-1 (0-2/HPF) Urine WBC NONE SEEN (0-5/HPF) Ur Squamous Epith Cells MANY Urine Bacteria 1+ H (NEGATIVE) Meds: Medications Discontinued Medications Generic Name Dose Route Start Last Admin Trade Name Freq PRN Reason Stop Dose Admin Hydrocodone Bitart/Acetaminophen 1 tab 07/20/20 10:48 07/20/20 11:04 [place] 325-7.5 Mg PO 07/20/20 10:49 1 tab NOW STA Administration Ketorolac Tromethamine 60 mg 07/20/20 10:48 07/20/20 11:05 Toradol IM 07/20/20 10:49 60 mg ONETIME ONE Administration Ondansetron HCl 4 mg 07/20/20 10:48 07/20/20 11:05 Zofran Odt PO 07/20/20 10:49 4 mg ONETIME ONE Administration Departure - Departure Time of Disposition: 13:14 Disposition: Home, Self-Care 01 Clinical Impression: Chalazion Qualifiers: Laterality: right Eyelid: lower Qualified Code(s): H00.12 - Chalazion right lower eyelid Low back pain Qualifiers: Chronicity: acute Back pain laterality: midline Sciatica presence: without sciatica Qualified Code(s): M54.5 - Low back pain - Discharge Information Prescriptions: Erythromycin Base [Erythromycin 0.5% Ophth Oint] 1 applic OP Q4H 5 Days #1 tube Cyclobenzaprine [Flexeril] 10 mg PO TID PRN #9 tab PRN Reason: Spasms Diclofenac Sodium [Voltaren] 75 mg PO BIDMEALS PRN #15 tab.cr PRN Reason: Pain Referrals: PCP,None [Primary Care Provider] - Forms: ED Department Discharge Additional Instructions: The following information is given to patients seen in the emergency department who are being discharged to home. This information is to outline your options for follow-up care. We provide all patients seen in our emergency department with a follow-up referral. The need for follow-up, as well as the timing and circumstances, are variable depending upon the specifics of your emergency department visit. If you don't have a primary care physician on staff, we will provide you with a referral. We always advise you to contact your personal physician following an emergency department visit to inform them of the circumstance of the visit and for follow-up with them and/or the need for any referrals to a consulting specialist. The emergency department will also refer you to a specialist when appropriate. This referral assures that you have the opportunity for follow-up care with a specialist. All of these measure are taken in an effort to provide you with optimal care, which includes your follow-up. Under all circumstances we always encourage you to contact your private physician who remains a resource for coordinating your care. When calling for follow-up care, please make the office aware that this follow-up is from your recent emergency room visit. If for any reason you are refused follow-up, please contact the [facility] Emergency Department at and asked to speak to the emergency department charge nurse. [facility] [address] [place] [id number] [facility], Ophthalmology, Primary Care [address] [place] [address] 1. Use a warm compress such as a wet facecloth, as warm as can be tolerated. Apply compress to the affected eyelid for 15 minutes, 2-4 times a day. In order to keep your eyelashes free from debris, you can use baby shampoo to remove skin particles from your eyelashes. 2. To massage the eye lid, after a bath or shower, warm up your hands with hot water. Use 1 drop of baby shampoo and close both eyes and cover the lashes with your index finger. Vigorously massaged the lid [id number] 10 times, do this 4 separate times, then rinse off any remaining shampoo. 3. Follow up with the emergency room clerk and primary care provider as discussed. Return to the ED as needed and as discussed. 4. The medication you received today does cause drowsiness, so do not drive for the remaining day. 5. Limit your mobility to prevent muscle stiffness. Get up to ambulate/move around/gentle stretching multiple times throughout the day. May alternate heat and ice to painful areas. 6. Tylenol as needed for back pain. Otherwise, take the prescribed Flexeril and diclofenac as directed. Diclofenac as an anti-inflammatory medication so do not take any additional NSAIDs with this medication, such as naproxen, ibuprofen, or Aleve. Flexeril, this medication may cause drowsiness, so do not take it while driving or needing to be functioning outside of the home. Sepsis Event Note (ED) - Focused Exam Vital Signs: Vital Signs Temp Pulse Resp BP Pulse Ox 07/20/20 10:38 96.8 F L 71 13 160/100 H 96 - My Orders Last 24 Hours: My Active Orders 07/20/20 10:58 EKG Documentation Completion [RC] STAT 07/20/20 13:12 CULTURE URINE [RM] Stat - Assessment/Plan Last 24 Hours: My Active Orders 07/20/20 10:58 EKG Documentation Completion [RC] STAT 07/20/20 13:12 CULTURE URINE [RM] Stat
[2020-07-20] MEDS ORDERED: Ketorolac 60 MG/2 ML SDV IM ONE (10:48)
[2020-07-20] MEDS ORDERED: Acetaminophen/HYDROcodone 325-7.5 MG Tab PO STA (10:48)
[2020-07-20] MEDS ORDERED: Ondansetron 4 MG Tab.DIS PO ONE (10:48)
[2020-07-20 11:36] LABS: BLOOD UREA NITROGEN,BUN 13 mg/dL (7.0-18.0); CARBON DIOXIDE,CO2 25.8 mmol/L (21.0-32.0); CHLORIDE,CL 106 mmol/L (98-107); GLUCOSE RANDOM 104 mg/dL (74-106); LIPASE 112 U/L (73-393); POTASSIUM,K 4.3 mmol/L (3.5-5.1); SODIUM,NA 140 mmol/L (136-145)
--- NOTE | 2020-07-20 12:13 | CR ---
Lumbar spine: AP and lateral views of the lumbar spine were obtained. Comparison: No prior lumbar spine imaging. Disc space narrowing noted at the lumbosacral junction. Uncertain if this is a rudimentary disc from transitional segment or represents actual disc space narrowing. Other disks are well maintained. Vertebral body heights are maintained. Minimal scattered endplate osteophytes are seen. Pedicles are intact. Visualized transverse and spinous processes are intact. No subluxation or acute fracture is seen. Impression: 1. Disc space narrowing at the lumbosacral junction as described above. 2. Mild scattered endplate osteophytes. Diagnostic code #2 Study was dictated in MDT
--- NOTE | 2020-07-20 12:13 | CR ---
Thoracic spine: AP and lateral views of the thoracic spine were obtained. Mild disc space narrowing within the mid and upper thoracic spine is seen. Anterior lateral osteophytes are seen most prominent within the mid to lower thoracic spine. Pedicles are intact. No subluxation or fracture is noted. Impression: 1. Mild degenerative change. 2. Nothing acute is definitely appreciated. Diagnostic code #2 Study was dictated in MDT
[2020-07-20 13:38] VITALS: BP 121/81; PULSE 80
== END 2020-07-20 13:37 | disposition home or self-care (01) ==
LOC: MW.ED 10:16
DX: H00.12 Chalazion right lower eyelid (principal); H10.9 Unspecified conjunctivitis; M54.5 Low back pain; Z90.710 Acquired absence of both cervix and uterus
CPT/HCPCS: 36415; 72070; 72100; 80053; 81001; 83690; 84702; 85025; 87086; 93005; 96372; 99284; A9270; J1885

== ENCOUNTER 2020-11-27 11:42 | Day surgery (SDC) | payer OTHER ==
[2020-11-27] MEDS ORDERED: Lidocaine 2% 5 ML SDV INJECT ONE (13:30)
[2020-11-27] MEDS ORDERED: Iopamidol 200-M 10 ML vial ITHECAL ONE (13:30)
[2020-11-27] MEDS ORDERED: Betamethasone Acetate/Betamethasone Sod Phosphate 30 MG/5 ML MDV EPIDUR ONE (13:30)
[2020-11-27] MEDS ORDERED: Ropivacaine 0.5% 5 MG/ML 30 ML SDV INJECT ONE (13:30)
--- NOTE | 2020-11-27 17:31 | OR ---
SURGEON: Paulette Arora D.O. DATE OF PROCEDURE: 11/27/2020 PRIMARY SURGEON: Paulette Arora DO ASSISTANTS: OR staff present: 1. Kam Siddiqi RN. 2. Rambo Grijalva RN. 3. Etelvina De Santiago RT. WOUND CLASS: I. PREOPERATIVE DIAGNOSES: 1. Lumbar degenerative disk disease. 2. Left L5-S1 radiculopathy. POSTOPERATIVE DIAGNOSES: 1. Lumbar degenerative disk disease. 2. Left L5-S1 radiculopathy. PROCEDURES PERFORMED: 1. Left S1 transforaminal epidural steroid injection. 2. Fluoroscopic guidance for needle placement. 3. Local with oral Valium for sedation. SCREENING QUESTIONS: The patient answered "no" to all of the following questions: 1. Are you allergic to iodine, Betadine or latex? 2. Do you have a bleeding disorder? 3. Do you have any joint replacements, heart valve replacements, or a pacemaker? 4. Are you allergic to anti-inflammatories or blood thinners? 5. Do you have any current local or systemic infections? DESCRIPTION OF PROCEDURE: The patient had the procedure thoroughly explained including risks, benefits and alternatives. Consent was signed in my clinic indicating understanding and willingness to proceed. The patient presented to [facility] where the patient was escorted to the dressing room to disrobe and change into a hospital gown. Preoperative vital signs were taken and stable. The patient reported that Valium was taken prior to the procedure. The patient was brought to the procedure room and placed in the prone position on the table. A pillow was placed under the abdomen in order to flatten the lumbar lordosis. The back was prepped with ChloraPrep and sterilely draped. All personnel in the operating room were dressed in appropriate attire including surgical scrubs, head and shoe covers. This was to ensure sterility while in the treatment room. During the time fluoroscopy was in use, all personnel in the operating room wore lead hong with thyroid collars. Sterile technique was used during the procedure. The fluoroscope was placed for the left S1 transforaminal epidural steroid injection. There was no sign of infection at the skin site for needle insertion. The skin was anesthetized with 2% lidocaine with a 27 gauge 1-1/2 inch needle. Then, a 22 gauge 3-1/2 inch spinal needle, advanced to the left. Under direct fluoroscopic guidance needle position was verified in three views; AP, oblique and lateral, with 0.2 cubic centimeters increments of Isovue-200 dye. No intravascular flow pattern was observed under live fluoroscopy. Then a mixture of local and 12 milligrams of Celestone was slowly injected after negative aspiration of heme, cerebrospinal fluid and no paresthesias were noted. The needle was cleared prior to removal from the skin. No adverse reactions were noted. The patient was brought to the recovery room awake and in good condition by my staff. The patient was monitored and discharge instructions were given after a brief stay in the recovery area. Both oral and written discharge and follow up instructions were given. The patient will follow up in the clinic in 3-4 weeks post procedure to evaluate the efficacy. The patient verbalized understanding including understanding of those signs and symptoms that would require emergency care and knows how to contact the office if there are any problems or questions in the meantime. PREOPERATIVE PAIN: 6/10. POSTOPERATIVE PAIN: 2/10. FOLLOWUP: In the Pain Clinic in 3 weeks. NIKI / CELINA /[id number] ANDRY
== END 2020-11-27 13:33 ==
LOC: MW.SDS 11:42
PROVIDERS: ATTEND Anesthesiology
DX: M51.16 Intervertebral disc disorders with radiculopathy, lumbar region (principal); K21.9 Gastro-esophageal reflux disease without esophagitis; G43.909 Migraine, unspecified, not intractable, without status migrainosus; Z98.890 Other specified postprocedural states; M48.061 Spinal stenosis, lumbar region without neurogenic claudication; M47.26 Other spondylosis with radiculopathy, lumbar region; M79.18 Myalgia, other site
CPT/HCPCS: 64483; J0702; J2001; J2795; Q9966